=== PATIENT | female | born 2000 | race Caucasian/White ===

== ENCOUNTER 2019-11-07 08:32 | Emergency (ER) | payer OTHER ==
[2019-11-07 08:53] LABS: Influenza B Molecular POSITIVE (Negative)
[2019-11-07] MEDS ORDERED: Oseltamivir CAP* 75 MG CAP PO ONE (11:35)
[2019-11-07] MEDS ORDERED: Acetaminophen TAB* 325 MG PO ONE (11:35)
[2019-11-07 12:09] VITALS: BP 118/91
--- NOTE | 2019-11-07 17:25 | ED ---
Influenza-Like Illness - HPI Summary HPI Summary: This patient is a 19-year-old otherwise healthy female who presents to the ED with a low-grade fever, sore throat and congestion as well as cough. Patient states 2 room mates tested positive for the flu this weekend. She did not receive the flu vaccine. She continues to eat and drink okay, however somewhat less. She has been taking Tylenol [id number] without much relief. Symptoms began approximately 2 days ago and have remained persistent. She does feel somewhat better today than she did yesterday. She states she has no cough medication at home or other symptom relief. - History of Current Complaint Chief Complaint: EDFluSymptoms Time Seen by Provider: 11/07/19 09:35 Hx Obtained From: Patient Onset/Duration: Sudden Onset Severity: Moderate Associated Signs & Symptoms: Fever, T Max, F/C, Myalgia, Cough Related Hx: Possible Flu/Infectious Exposure - Risk Factors Influenza Risk Factors: Negative - Allergy/Home Medications Allergies/Adverse Reactions: Allergies Allergy/AdvReac Type Severity Reaction Status Date / Time No Known Allergies Allergy Verified 11/07/19 08:37 Home Medications: Home Medications Acetaminophen TAB* [Tylenol TAB*] 325 mg PO Q4H PRN 11/07/19 [History Confirmed 11/07/19] PMH/Surg Hx/FS Hx/Imm Hx Previously Healthy: Yes - Immunization History Hx Pertussis Vaccination: No Immunizations Up to Date: Yes Infectious Disease History: No Infectious Disease History: Denies: Traveled Outside the [place] in Last 30 Days - Social History Occupation: Student Lives: Dormitory/Roommates Alcohol Use: None Substance Use Type: Reports: None Smoking Status (MU): Never Smoked Tobacco Review of Systems Positive: Fever, Chills, Fatigue, Skin Diaphoresis Positive: Sore Throat. Negative: Ear Ache Negative: Palpitations, Chest Pain Positive: Cough. Negative: Shortness Of Breath Genitourinary: Negative Positive: no symptoms reported, see HPI Negative: Arthralgia, Myalgia Skin: Negative All Other Systems Reviewed And Are Negative: Yes Physical Exam Triage Information Reviewed: Yes Vital Signs On Initial Exam: Initial Vitals Temp Pulse Resp BP Pulse Ox 102.1 F 126 19 140/96 98 11/07/19 08:34 11/07/19 08:34 11/07/19 08:34 11/07/19 08:34 11/07/19 08:34 Vital Signs Reviewed: Yes Appearance: Positive: Ill-Appearing Skin: Positive: Skin Color Reflects Adequate Perfusion Head/Face: Positive: Normal Head/Face Inspection Eyes: Positive: EOMI, EDWIN, Conjunctiva Clear ENT: Positive: Pharynx normal, TMs normal, Uvula midline. Negative: Pharyngeal erythema, Nasal congestion, TM dull, Tonsillar swelling, Tonsillar exudate, Hoarse voice, Dental tenderness, Sinus tenderness Neck: Positive: Supple, No Lymphadenopathy Respiratory/Lung Sounds: Positive: Clear to Auscultation, Breath Sounds Present Cardiovascular: Positive: Pulses are Symmetrical in both Upper and Lower Extremities, Tachycardia Musculoskeletal: Positive: Normal, Strength/ROM Intact Neurological: Positive: Speech Normal Psychiatric: Positive: Normal, Affect/Mood Appropriate AVPU Assessment: Alert Procedures - Sedation Patient Received Moderate/Deep Sedation with Procedure: No Diagnostics - Vital Signs Vital Signs Temp Pulse Resp BP Pulse Ox 11/07/19 12:07 98.8 F 114 19 118/91 100 11/07/19 11:47 99.9 F 117 19 144/84 96 11/07/19 08:34 102.1 F 126 19 140/96 98 - Laboratory Lab Results: Lab Results 11/07/19 Range/Units 08:37 Influenza A (Rapid) Not Reportable Influenza B (Rapid) Positive H (Negative) Lab Statement: Any lab studies that have been ordered have been reviewed, and results considered in the medical decision making process. Flu Symptom Course/Dx - Course Course Of Treatment: This patient is evaluated for influenza-like symptoms. On arrival to the ED, vital signs are 102.1 and tachycardic at 126. Patient was given PO fluids and tylenol. This reduced temp to 98.8 and HR 114. Pt continues to drink well and does not appear dehydrated. Influenza B-positive. Pt given note for school and dx with influenza. tamiflu sent to rx. - Diagnoses Differential Diagnosis/HQI/PQRI: Positive: Influenza Provider Diagnoses: Influenza B Discharge ED - Sign-Out/Discharge Documenting (check all that apply): Patient Departure - Discharge Plan Condition: Stable Disposition: HOME Prescriptions: Oseltamivir CAP* [Tamiflu CAP*] 75 mg PO BID #9 cap Patient Education Materials: Influenza (ED) Forms: *School Release Referrals: [facility] ESPINOZA [Primary Care Provider] - Additional Instructions: Tamiflu twice daily x 5 days Out of school 5 days Drink plenty of fluids Tylenol 650 mg 4 times daily, ibuprofen 600 mg 4 times daily Use these intermittently Rest - Billing Disposition and Condition Condition: STABLE Disposition: Home
== END 2019-11-07 12:09 | disposition home or self-care (01) ==
LOC: ED 08:32
DX: J10.1 Influenza due to other identified influenza virus with other respiratory manifestations (principal)
CPT/HCPCS: 99282; A9270-GY